=== PATIENT | female | born 1965 | race Caucasian/White ===

== ENCOUNTER 2018-05-28 13:03 | Emergency (ER) | payer OTHER ==
--- OUTSIDE RECORDS SUMMARY | 2018-05-28 13:06 | XMS REPORT | Continuity of Care Document ---
:1965 Author Organization Interface Problems Problem Status Onset Classification Date Comments Source Date Reported Diverticulosis of Active Diagnosis 02/25/2018 En[facility]et large intestine Rahim without hemorrhage Benign essential Active Problem 02/25/2018 [facility] HTN Rahim Other chronic pain Active Problem 02/25/2018 Enayet Rahim Acute superficial Active Diagnosis 02/25/2018 Enayet gastritis without Rahim hemorrhage Hiatal hernia Active Diagnosis 02/25/2018 Enayet Rahim Migraine with aura Active Problem 02/25/2018 Enayet and without status Rahim migrainosus, not intractable Diarrhea, Active Diagnosis 01/28/2018 Enayet unspecified type Rahim Epigastric pain Active Diagnosis 01/28/2018 Enayet Rahim Encounter to Active Diagnosis 01/28/2018 Enayet establish care Rahim Low back pain Active Diagnosis 01/28/2018 Enayet Rahim Medications Medication Details Route Status Patient Ordering Order Source Instructions Provider Date Pantoprazole 1 tablet Orally Active 40 mg Orally Matt Enayet Sodium Once a day 018 Rahim Losartan 2 tablet Orally Active 25 MG Orally Matt Enayet Potassium Once a day 018 Rahim Dicyclomine HCl 1 capsule Orally Active 10 mg Orally Matt Enayet bid as needed 018 Rahim for diarrhea and cramps Zofran ODT 1 tablet on Orally Active 4 MG Orally Matt Enayet the tongue every 8 hrs Rahim and allow to dissolve Methocarbamol 1 tablet Orally Active 750 MG Orally Matt Enayet Twice a day as Rahim needed Hyoscyamine 1 tablet as Orally Active 0.125 MG Orally Matt Enayet Sulfate needed every 4 hrs Rahim Hydromorphone 1 tablet as Orally Active 2 MG Orally Matt Enayet HCl needed Once a day Rahim Sumatriptan 1 tablet as Orally Active 100 MG Orally Matt Enayet Succinate needed Once a day Rahim Metoprolol 1 tablet Orally Active 50 MG Orally Matt Enayet Succinate ER Once a day Rahim Methocarbamol 1 tablet Orally Active 750 MG Orally Matt Enayet Twice a day as Rahim needed Hydromorphone 1 tablet as Orally Active 2 MG Orally Matt Enayet HCl needed Once a day Rahim Sumatriptan 1 tablet as Orally Active 100 MG Orally Matt Enayet Succinate needed Once a day Rahim Allergies, Adverse Reactions, Alerts Substance Category Reaction Severity Reaction Status Date Comments Source type Reported Celebrex Adverse Info Not Adverse Active Enayet Reaction Available Reaction 8 Rahim Lyrica Adverse Depression Adverse Active Enayet Reaction Reaction 8 Rahim Flexeril Adverse weakness Adverse Active Enayet Reaction Reaction 8 Rahim Naproxen Adverse anaphylaxis Adverse Active Enayet Reaction Reaction 8 Rahim Sulfa Adverse rash Adverse Active Enayet Reaction Reaction 8 Rahim Immunizations Immunization Date Given Site Status Last Updated Comments Source Results Order Results Value Reference Date Interpretation Comments Source Name Range Vital Signs Vital Sign Value Date Comments Source Weight 202 02/18/2018 Enayet Rahim Height 69 02/18/2018 Enayet Rahim Temperature Oral (F) 98.4 F 02/18/2018 Enayet Rahim Diastolic (mm Hg) 108 02/18/2018 Enayet Rahim Systolic (mm Hg) 171 02/18/2018 Enayet Rahim Weight 201 01/10/2018 Enayet Rahim Height 69 01/10/2018 Enayet Rahim Temperature Oral (F) 97.8 F 01/10/2018 Enayet Rahim Diastolic (mm Hg) 99 01/10/2018 Enayet Rahim Systolic (mm Hg) 158 01/10/2018 Enayet Rahim Encounters Location Location Encounter Encounter Reason Attending ADM DC Status Source Details Type Number For Provider Date Date Visit Procedures Procedure Code Date Perfomer Comments Source
--- OUTSIDE RECORDS SUMMARY | 2018-05-28 13:07 | XMS REPORT ---
:1965 Author Organization [employer] Care Team Providers Name Role Phone Kailash Gutierrez Provider Role Unavailable Allergies, Adverse Reactions, Alerts Substance Reaction Event Type Celebrex Info Not Available Non Drug Allergy Lyrica Depression Non Drug Allergy Flexeril weakness Non Drug Allergy Naproxen anaphylaxis Non Drug Allergy Sulfa rash Non Drug Allergy Problems Problem Type Condition Code Onset Dates Condition Status Assessment Diarrhea, unspecified type R19.7 Active Assessment Migraine with aura and without G43.109 Active status migrainosus, not intractable Assessment Epigastric pain R10.13 Active Problem Migraine with aura and without G43.109 Active status migrainosus, not intractable Problem Benign essential HTN I10 Active Problem Other chronic pain G89.29 Active Assessment Other chronic pain G89.29 Active Assessment Benign essential HTN I10 Active Assessment Encounter to establish care Z76.89 Active Assessment Low back pain M54.5 Active Medications Medication Code Code Instructions Start End Status Dosage System Date Date Methocarbamol [facility] [address]-54 750 MG Orally Active 1 tablet Twice a day as needed Hydromorphone [facility] [address]-26 2 MG Orally Active 1 tablet HCl Once a day as needed Metoprolol ND 99087862439 50 MG Orally Active 1 tablet Succinate ER Once a day Losartan ND 07119713768 25 MG Orally Jan 10, Active 1 tablet Potassium Once a day [address] [facility] [address]-57 100 MG Orally Active 1 tablet Succinate Once a day as needed Zofran ODT ND 89840178372 4 MG Orally Active 1 tablet every 8 hrs on the tongue and allow to dissolve Dicyclomine HCl ND 76191958102 10 mg Orally Jan 10Jan Active 1 capsule bid as needed 2017 16, for diarrhea 2017 and cramps Pantoprazole ND 81043784041 40 mg Orally Jan 10, Active 1 tablet Sodium Once a day 2017 Vital Signs Date/Time: Jan 10, 2018 BMI 29.68 Index Weight 201 lbs Height 69 in Temperature 97.8 F Blood Pressure Diastolic 99 mm Hg Blood Pressure Systolic 158 mm Hg Results No Known Results Summary Purpose [employer] Submission
--- OUTSIDE RECORDS SUMMARY | 2018-05-28 13:07 | XMS REPORT ---
[...] Condition Code Onset Dates Condition Status Assessment Diverticulosis of large intestine K57.30 Active without hemorrhage Problem Benign essential HTN I10 Active Problem Other chronic pain G89.29 Active Problem Diverticulosis of large intestine K57.30 Active without hemorrhage Assessment Acute superficial gastritis without K29.00 Active hemorrhage Assessment Hiatal hernia K44.9 Active Problem Migraine with aura and without G43.109 Active status migrainosus, not intractable Assessment Benign essential HTN I10 Active Medications Medication Code Code Instructions Start End Status Dosage System Date Date Zofran ODT ND 89318382042 4 MG Orally Active 1 tablet on every 8 hrs the tongue and allow to dissolve Methocarbamol ND 97550539296 750 MG Orally Active 1 tablet Twice a day as needed Pantoprazole ND 67182096417 40 mg Orally Jan 10, Active 1 tablet Sodium Once a day 2017 Hyoscyamine ND 00483148115 0.125 MG Orally Active 1 tablet as Sulfate every 4 hrs needed Hydromorphone ND 24350501509 2 MG Orally Active 1 tablet as HCl Once a day needed Sumatriptan ND 18403475359 100 MG Orally Active 1 tablet as Succinate Once a day needed Losartan ND 50584875096 25 MG Orally Jan 10, Active 2 tablet Potassium Once a day 2018 Metoprolol ND 23696502290 50 MG Orally Active 1 tablet Succinate ER Once a day Vital Signs Date/Time: Feb 18, 2018 BMI 29.83 Index Weight 202 lbs Height 69 in Temperature 98.4 F Blood Pressure Diastolic 108 mm Hg Blood Pressure Systolic 171 mm Hg Results No Known Results Summary Purpose eClinicalWorks Submission
[2018-05-28] MEDS ORDERED: DEXAMETHASONE 10 MG/ML VIAL ONE (14:26)
[2018-05-28] MEDS ORDERED: DIAZEPAM 5 MG TABLET ONE (14:27)
[2018-05-28] MEDS ORDERED: HYDROMORPHONE HCL 1 MG/ML INJ ONE (14:27)
[2018-05-28] MEDS ORDERED: ONDANSETRON 4 MG/2 ML VIAL ONE (14:27)
[2018-05-28] MEDS ORDERED: KETOROLAC 30 MG/ML INJ ONE (14:27)
[2018-05-28] MEDS ORDERED: NA CHLORIDE 0.9% 1,000 ML ONE (14:27)
[2018-05-28 14:32] LABS: Absolute Lymphocytes (CBC) 2.2 K/uL (0.7-4.9); Absolute Monocytes 0.5 K/uL (0.1-1.3); Absolute Neutrophil 2.6 K/uL (1.8-8.0); Basophils % 0.6 % (0-1.3); Eosinophils % 1.7 % (0-4.4); Lymphocytes % 40.4 % (15.3-44.8); MPV 8.7 fL (7.6-11.3); RBC Red Blood Cell Count 5.01 M/uL (3.86-4.86)
--- NOTE | 2018-05-28 14:41 | RAD REPORT ---
EXAM DESCRIPTION: CT - Spine Lumbar Wo Con - 05/28/2018 2:32 pm CLINICAL HISTORY: Radiculopathy. LOWER BACK PAIN COMPARISON: No comparisons TECHNIQUE: Axial noncontrast CT imaging of the lumbar spine was performed with coronal and sagittal re-formatted images. All CT scans are performed using dose optimization technique as appropriate and may include automated exposure control or mA/KV adjustment according to patient size. FINDINGS: No acute lumbar spine fracture seen. No aggressive marrow pattern or malalignment. Paraspinal tissues are normal in thickness. No paraspinal abscess or hematoma seen. Mild lower lumbar degenerative changes are present with small disc bulge present at L4-5 and L5-S1 wi th facet hypertrophy. IMPRESSION: Mild lower lumbar spondylosis suspected. No acute lumbar spine finding is evident.
[2018-05-28 14:49] LABS: Albumin 4.2 g/dL (3.4-5.0); Bilirubin Total 0.3 mg/dL (0.2-1.0); Potassium 4.3 mmol/L (3.5-5.1); Protein, Total 7.9 g/dL (6.4-8.2)
--- NOTE | 2018-05-28 15:14 | ER ---
Nurse's Notes [facility] Name: Lois Baum Age: 52 yrs Sex: Female : 1965 Arrival Date: 05/28/2018 Time: 13:06 Bed 16 Private MD: Diagnosis: Low back pain;Sciatica;Spondylolysis, lumbar region Presentation: 05/28 13:14 Presenting complaint: Patient states: Low back pain that shoots down left leg that aj started on 05/15, improved and then got worse again. Patient reports pain started when she was on the ground mopping the floor and then went to stand. Transition of care: patient was not received from another setting of care. Onset of symptoms was May 15, 2018. Risk Assessment: Do you want to hurt yourself or someone else? Patient reports no desire to harm self or others. Initial Sepsis Screen: Does the patient meet any 2 criteria? No. Patient's initial sepsis screen is negative. Does the patient have a suspected source of infection? No. Patient's initial sepsis screen is negative. Care prior to arrival: None. 13:14 Method Of Arrival: Ambulatory aj 13:14 Acuity: ELDON 3 aj Triage Assessment: 13:16 General: Appears in no apparent distress. comfortable, Behavior is calm, cooperative, aj appropriate for age. Pain: Complains of pain in low back area and left leg. Neuro: Level of Consciousness is awake, alert, obeys commands, Oriented to person, place, time, situation, Appropriate for age. Respiratory: Airway is patent Respiratory effort is even, unlabored, Respiratory pattern is regular, symmetrical. Derm: Skin is intact, is healthy with good turgor, Skin is pink, warm \T\ dry. normal. Musculoskeletal: Circulation, motion, and sensation intact. Range of motion: intact in all extremities, Reports pain in low back area and left leg. 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 - Social history:: Smoking status: Patient/guardian denies using tobacco, Patient uses alcohol, weekly. - Ebola Screening: : Patient negative for fever greater than or equal to 101.5 degrees Fahrenheit, and additional compatible Ebola Virus Disease symptoms Patient denies exposure to infectious person Patient denies travel to an Ebola-affected area in the 21 days before illness onset No symptoms or risks identified at this time. - Family history:: not pertinent. Screenin:45 Abuse screen: Denies threats or abuse. Denies injuries from another. Nutritional hb screening: No deficits noted. Tuberculosis screening: No symptoms or risk factors identified. Fall Risk None identified. Assessment: 13:45 General: Appears in no apparent distress. uncomfortable, Behavior is calm, cooperative. hb Pain: Pain currently is 7 out of 10 on a pain scale. at worst was 10 out of 10 on a pain scale. Neuro: Level of Consciousness is awake, alert, obeys commands, Oriented to person, place, time, situation. Cardiovascular: Capillary refill < 3 seconds Patient's skin is warm and dry. Respiratory: Airway is patent Trachea midline Respiratory effort is even, unlabored, Respiratory pattern is regular, symmetrical. GI: No signs and/or symptoms were reported involving the gastrointestinal system. : No signs and/or symptoms were reported regarding the genitourinary system. EENT: No signs and/or symptoms were reported regarding the EENT system. Derm: Skin is intact, is healthy with good turgor, Skin is pink, warm \T\ dry. Musculoskeletal: Reports low back pain that radiates to left leg. 14:26 Reassessment: Pt to CT via wheelchair with tech. hb 14:51 Reassessment: Pt returned from CT, assisted back to bed. NAD> Reports pain 2/10. Bed hb locked in low position. Call light within reach. at bedside. 15:45 Reassessment: Patient appears in no apparent distress at this time. Patient and/or hb family updated on plan of care and expected duration. Pain level reassessed. Patient is alert, oriented x 3, equal unlabored respirations, skin warm/dry/pink. Patient states symptoms have improved. Vital Signs: 13:16 BP 188 / 104; Pulse 84; Resp 20; Temp 98.6; Pulse Ox 100% on R/A; Weight 90.26 kg; aj Height 5 ft. 9 in. (175.26 cm); 13:45 BP 151 / 78; Pulse 76; Resp 16; Pulse Ox 99% on R/A; Pain 7/10; hb 14:45 BP 146 / 76; Pulse 77; Resp 15; Pulse Ox 100% on R/A; Pain 3/10; hb 15:45 BP 132 / 74; Pulse 68; Resp 16; Pulse Ox 99% on R/A; Pain 2/10; hb 13:16 Body Mass Index 29.39 (90.26 kg, 175.26 cm) aj ED Course: 13:06 Patient arrived in ED. as 13:15 Triage completed. aj 13:16 Arm band placed on left wrist. Patient placed. aj 13:18 Abigail Mauricio, RN is Primary Nurse. hb 13:22 Ben Box MD is Attending Physician. ariel 13:45 Patient has correct armband on for positive identification. Bed in low position. Call hb light in reach. 14:22 Initial lab(s) drawn, by me, sent to lab. Inserted saline lock: 22 gauge in left dh3 antecubital area, using aseptic technique. Blood collected. 14:32 CT completed. Patient tolerated procedure well. Patient moved to CT via wheelchair. sj Patient moved back from CT. 14:32 CT Lumbar Spine Wo Con In Process Unspecified. EDMS 16:00 No provider procedures requiring assistance completed. IV discontinued, intact, hb bleeding controlled, No redness/swelling at site. Pressure dressing applied. Administered Medications: 14:25 Drug: Zofran 4 mg Route: IVP; Site: left antecubital; hb 14:52 Follow up: Response: No adverse reaction hb 14:25 Drug: Valium 5 mg Route: PO; hb 14:52 Follow up: Response: No adverse reaction hb 14:25 Drug: Decadron - Dexamethasone 10 mg Route: IVP; Site: left antecubital; hb 14:53 Follow up: Response: No adverse reaction hb 14:26 Drug: NS 0.9% 1000 ml Route: IV; Rate: 1 bolus; Site: left antecubital; hb 14:26 Drug: TORadol 30 mg Route: IVP; Site: left antecubital; hb 14:52 Follow up: Response: No adverse reaction hb 14:26 Drug: Dilaudid 1 mg Route: IVP; Site: left antecubital; hb 14:52 Follow up: Response: No adverse reaction hb Outcome: 15:14 Discharge ordered by . ariel 16:00 Discharged to home ambulatory, with significant other. hb 16:00 Condition: stable 16:00 Discharge instructions given to patient, Instructed on discharge instructions, follow up and referral plans. medication usage, Demonstrated understanding of instructions, follow-up care, medications, Prescriptions given X 4. 16:06 Patient left the ED. hb Signatures: Dispatcher [employer] EDNorma Morgan, RN RN Ben Hernandez MD MD cha Jones, Padmini Frazier Heather, RN RN hb Herrera, Lauren [facility]
--- NOTE | 2018-05-28 15:15 | EDPHYS ---
Physician Documentation [facility] Name: Lois Baum Age: 52 yrs Sex: Female : 1965 Arrival Date: 05/28/2018 Time: 13:06 Bed 16 Private MD: ED Physician Ben Box HPI: 05/28 14:11 This 52 yrs old Female presents to ER via Ambulatory with complaints of Back ariel Pain. 14:11 The patient presents with pain that is acute, with no known mechanism of injury. The ariel symptoms are located in the low back. Onset: The symptoms/episode began/occurred 10 day(s) ago. The pain radiates to the left low back and right low back. Associated signs and symptoms: The patient has no apparent associated signs or symptoms. The problem was sustained when bending over, from a chronic condition. Modifying factors: The patient symptoms are alleviated by nothing, remaining still, the patient symptoms are aggravated by any movement, bending, lifting, movement. Severity of symptoms: At their worst the symptoms were. The patient has experienced similar episodes in the past, several times. 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 - Social history:: Smoking status: Patient/guardian denies using tobacco, Patient uses alcohol, weekly. - Ebola Screening: : Patient negative for fever greater than or equal to 101.5 degrees Fahrenheit, and additional compatible Ebola Virus Disease symptoms Patient denies exposure to infectious person Patient denies travel to an Ebola-affected area in the 21 days before illness onset No symptoms or risks identified at this time. - Family history:: not pertinent. ROS: 14:11 Constitutional: Negative for fever, chills, and weight loss, Eyes: Negative for injury, ariel pain, redness, and discharge, ENT: Negative for injury, pain, and discharge, Neck: Negative for injury, pain, and swelling, Cardiovascular: Negative for chest pain, palpitations, and edema, Respiratory: Negative for shortness of breath, cough, wheezing, and pleuritic chest pain, Abdomen/GI: Negative for abdominal pain, nausea, vomiting, diarrhea, and constipation, : Negative for injury, bleeding, discharge, and swelling, MS/Extremity: Negative for injury and deformity, Skin: Negative for injury, rash, and discoloration, Neuro: Negative for headache, weakness, numbness, tingling, and seizure, Psych: Negative for depression, anxiety, suicide ideation, homicidal ideation, and hallucinations, Allergy/Immunology: Negative for hives, rash, and allergies, Endocrine: Negative for neck swelling, polydipsia, polyuria, polyphagia, and marked weight changes, Hematologic/Lymphatic: Negative for swollen nodes, abnormal bleeding, and unusual bruising. 14:11 Back: Positive for decreased range of motion, pain at rest, pain with movement, of the lumbar area, left low back and right low back. Exam: 14:11 Constitutional: This is a well developed, well nourished patient who is awake, alert, ariel and in no acute distress. Head/Face: Normocephalic, atraumatic. Eyes: Pupils equal round and reactive to light, extra-ocular motions intact. Lids and lashes normal. Conjunctiva and sclera are non-icteric and not injected. Cornea within normal limits. Periorbital areas with no swelling, redness, or edema. ENT: Nares patent. No nasal discharge, no septal abnormalities noted. Tympanic membranes are normal and external auditory canals are clear. Oropharynx with no redness, swelling, or masses, exudates, or evidence of obstruction, uvula midline. Mucous membranes moist. Neck: Trachea midline, no thyromegaly or masses palpated, and no cervical lymphadenopathy. Supple, full range of motion without nuchal rigidity, or vertebral point tenderness. No Meningismus. Chest/axilla: Normal chest wall appearance and motion. Nontender with no deformity. No lesions are appreciated. Cardiovascular: Regular rate and rhythm with a normal S1 and S2. No gallops, murmurs, or rubs. Normal PMI, no JVD. No pulse deficits. Respiratory: Lungs have equal breath sounds bilaterally, clear to auscultation and percussion. No rales, rhonchi or wheezes noted. No increased work of breathing, no retractions or nasal flaring. Abdomen/GI: Soft, non-tender, with normal bowel sounds. No distension or tympany. No guarding or rebound. No evidence of tenderness throughout. Female : Normal external genitalia. Skin: Warm, dry with normal turgor. Normal color with no rashes, no lesions, and no evidence of cellulitis. MS/ Extremity: Pulses equal, no cyanosis. Neurovascular intact. Full, normal range of motion. Neuro: Awake and alert, GCS 15, oriented to person, place, time, and situation. Cranial nerves II-XII grossly intact. Motor strength 5/5 in all extremities. Sensory grossly intact. Cerebellar exam normal. Normal gait. Psych: Awake, alert, with orientation to person, place and time. Behavior, mood, and affect are within normal limits. 14:11 Back: pain, that is moderate, ROM is painful, normal spinal alignment noted, CVA tenderness, is absent, muscle spasm, is appreciated in the left low back, left mid back, right mid back and right low back. Vital Signs: 13:16 BP 188 / 104; Pulse 84; Resp 20; Temp 98.6; Pulse Ox 100% on R/A; Weight 90.26 kg; aj Height 5 ft. 9 in. (175.26 cm); 13:45 BP 151 / 78; Pulse 76; Resp 16; Pulse Ox 99% on R/A; Pain 7/10; hb 14:45 BP 146 / 76; Pulse 77; Resp 15; Pulse Ox 100% on R/A; Pain 3/10; hb 15:45 BP 132 / 74; Pulse 68; Resp 16; Pulse Ox 99% on R/A; Pain 2/10; hb 13:16 Body Mass Index 29.39 (90.26 kg, 175.26 cm) MDM: 13:22 Patient medically screened. [facility] 14:11 Data reviewed: vital signs, nurses notes, lab test result(s), radiologic studies, CT ariel scan. 05/28 14:11 Order name: CBC with Diff; Complete Time: 15:12 [facility] 05/28 14:11 Order name: Comprehensive Metabolic Panel; Complete Time: 15:12 [facility] 05/28 14:11 Order name: CT Lumbar Spine Wo Con; Complete Time: 15:12 [facility] 05/28 16:03 Order name: Urine Dipstick--Ancillary (enter results) ag 05/28 14:11 Order name: Urine Dipstick-Ancillary (obtain specimen); Complete Time: 17:42 ariel Administered Medications: 14:25 Drug: Zofran 4 mg Route: IVP; Site: left antecubital; hb 14:52 Follow up: Response: No adverse reaction hb 14:25 Drug: Valium 5 mg Route: PO; hb 14:52 Follow up: Response: No adverse reaction hb 14:25 Drug: Decadron - Dexamethasone 10 mg Route: IVP; Site: left antecubital; hb 14:53 Follow up: Response: No adverse reaction hb 14:26 Drug: NS 0.9% 1000 ml Route: IV; Rate: 1 bolus; Site: left antecubital; hb 14:26 Drug: TORadol 30 mg Route: IVP; Site: left antecubital; hb 14:52 Follow up: Response: No adverse reaction hb 14:26 Drug: Dilaudid 1 mg Route: IVP; Site: left antecubital; hb 14:52 Follow up: Response: No adverse reaction hb Disposition: 05/28/18 15:14 Discharged to Home. Impression: Low back pain, Sciatica, Spondylolysis, lumbar region. - Condition is Fair. - Discharge Instructions: Back Pain, Adult, Chronic Back Pain, Musculoskeletal Pain, Sciatica, Back Injury Prevention, [id number], Back Pain, Adult, [id number], Radicular Pain. - Prescriptions for Ibuprofen 600 mg Oral Tablet - take 1 tablet by ORAL route every 8 hours As needed take with food; 21 tablet. Tylenol- Codeine #3 300-30 mg Oral Tablet - take 2 tablet by ORAL route every 6 hours As needed; 30 tablet. Valium 5 mg Oral Tablet - take 1 tablet by ORAL route every 8 hours As needed; 20 tablet. Prednisone 20 mg Oral Tablet - take 2 tablet by ORAL route once daily for 5 days; 10 tablet. - Medication Reconciliation Form, Thank You Letter, Antibiotic Education, Prescription Opioid Use form. - Follow up: Private Physician; When: 2 - 3 days; Reason: Recheck today's complaints, Continuance of care, Re-evaluation by your physician. - Problem is an acute exacerbation. - Symptoms have improved. Signatures: Dispatcher [employer] Norma Qiules RN RN aj Anderson, Corey, MD MD cha Baxter, Heather, RN RN Corrections: (The following items were deleted from the chart) 16:06 15:14 05/28/2018 15:14 Discharged to Home. Impression: Low back pain; Sciatica; hb Spondylolysis, lumbar region. Condition is Fair. Discharge Instructions: Back Pain, Adult, Chronic Back Pain, Musculoskeletal Pain, Sciatica, Back Injury Prevention, [id number], Back Pain, Adult, [id number], Radicular Pain. Prescriptions for Ibuprofen 600 mg Oral Tablet - take 1 tablet by ORAL route every 8 hours As needed take with food; 21 tablet, Tylenol-Codeine #3 300-30 mg Oral Tablet - take 2 tablet by ORAL route every 6 hours As needed; 30 tablet, Valium 5 mg Oral Tablet - take 1 tablet by ORAL route every 8 hours As needed; 20 tablet, Prednisone 20 mg Oral Tablet - take 2 tablet by ORAL route once daily for 5 days; 10 tablet. and Forms are Medication Reconciliation Form, Thank You Letter, Antibiotic Education, Prescription Opioid Use. Follow up: Private Physician; When: 2 - 3 days; Reason: Recheck today's complaints, Continuance of care, Re-evaluation by your physician. Problem is an acute exacerbation. Symptoms have improved. ariel
[2018-05-28 16:19] LABS: Urine Blood TRACE (NEG); Urine Glucose NEGATIVE (NEG); Urine Protein NEGATIVE (NEG); Urine Specific Gravity 1.015 (1.005-1.030); Urine pH 6.5 (5.0-7.0)
[2018-05-28 16:55] VITALS: TEMP 98.6
[2018-05-28 16:56] VITALS: BP 151/78; O2SAT 99
== END 2018-05-28 16:06 | disposition home or self-care (01) ==
LOC: ER 13:03
DX: M54.30 Sciatica, unspecified side (principal); M47.9 Spondylosis, unspecified; I10 Essential (primary) hypertension; Z88.2 Allergy status to sulfonamides
CPT/HCPCS: 36415; 72131; 80053; 81003; 85025; 96374; 96375; 99284; J1100; J1170; J2405; J7030